=== PATIENT | male | born 1950 | race Caucasian/White ===

== ENCOUNTER 2017-11-21 17:09 | Emergency (ER) | payer OTHER, BC ==
[~2017-11-21] VITALS: Ht 177.8 cm; Wt 120.5 kg
[2017-11-21 17:29] VITALS: TEMP 36.7
[2017-11-21] MEDS ORDERED: ALUMINUM/MAGNESIUM SUSP 30 ML UDC PO STA (17:40)
[2017-11-21] MEDS ORDERED: ASPIRIN 81 MG CHEW PO STA (17:40)
[2017-11-21 17:44] VITALS: O2SAT 96
--- NOTE | 2017-11-21 17:54 | EMERGENCY ROOM VISIT NOTE ---
History Report prepared by [place]: Jenna Rodriguez Under the Supervision of: Monika BurdenO. First contact with patient: 17:33 Chief Complaint: ARM PAIN Stated Complaint: ARM PAIN AND SOME CHEST PAIN History of Present Illness The patient is a 67 year old male who presents to the Emergency Room with complaints of persistent right chest pain that began several days ago. 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 The patient states that he has been experiencing increasing right chest pain, along with some slight right arm pain, right wrist pain, and some swelling in his legs. He denies anything worsening his chest pain. The patient notes that he has been experiencing some shortness of breath recently. He states that last night, his wrist pain worsened and his fingers went numb for some time. The patient reports a history of a heart attack and a heart catheterization, but denies any history of blood clots. Source of History: patient Onset: several days ago Position: chest (right) Quality: other (right chest pain) Timing: other (persistent) Associated Symptoms: + SOB Note: Associated symptoms include: slight right arm pain, right wrist pain, and some swelling in his legs. Review of Systems See HPI for pertinent positives & negatives. A total of 10 systems reviewed and were otherwise negative. Past Medical & Surgical Medical Problems: (1) Arthritis (2) GERD (gastroesophageal reflux disease) (3) HTN (hypertension) Family History Patient reports no known family medical history. Patient does not report any pertinent family history. Social History Smoking Status: Never Smoker Smokeless Tobacco Use: No Alcohol Use: none Drug Use: none Marital Status: Housing Status: lives with family Occupation Status: employed Current/Historical Medications Scheduled Allopurinol (Zyloprim), 300 MG PO DAILY Aspirin (Aspirin Ec), 81 MG PO QPM Chlorthalidone (Hygroton), 12.5 MG PO QAM Cholecalciferol (Vitamin D3), 1 CAP PO QPM Ezetimibe (Zetia), 10 MG PO DAILY Fenofibrate Micronized (Tricor), 134 MG PO DAILY Lisinopril (Lisinopril), 5 MG PO DAILY Metoprolol Succinate (Metoprolol Succinate ER), 25 MG PO QAM Multiple Vitamins W/ Minerals (One Daily For Men 50+ Adv), 1 TAB PO DAILY Potassium (Potassium), 99 MG PO QPM Allergies Coded Allergies: Penicillins (Unverified Allergy, Severe, HIVES, 11/21/17) Physical Exam Vital Signs Date Time Temp Pulse Resp B/P (MAP) Pulse Ox O2 Delivery O2 Flow Rate FiO2 11/21/17 20:21 Room Air 11/21/17 19:58 66 20 138/77 99 Room Air 11/21/17 18:32 67 18 148/90 98 Room Air 11/21/17 17:44 96 Room Air 11/21/17 17:44 96 Room Air 11/21/17 17:42 75 11/21/17 17:29 36.7 88 20 184/88 96 Room Air Physical Exam GENERAL: Patient is awake, alert, and in no acute distress. Patient is resting comfortably and showing no signs of anxiety EYES: The conjunctivae are clear. The pupils are round and reactive. EARS, NOSE, MOUTH AND THROAT: The nose is without any evidence of any deformity. Mucous membranes are moist tongue is midline NECK: The neck is nontender and supple. RESPIRATORY: Normal respiratory effort is noted there is no evidence of wheezing rhonchi or rales CARDIOVASCULAR: Regular rate and rhythm noted there no murmurs rubs or gallops normal S1 normal S2 GASTROINTESTINAL: The abdomen is soft. Bowel sounds are present in all quadrants. Abdomen is nontender MUSCULOSKELETAL/EXTREMITIES: No calve tenderness bilaterally. There is no evidence of gross deformity full range of motion is noted in the hips and shoulders SKIN: Trace pedal edema bilaterally. There is no obvious evidence of any rash. There are no petechiae, pallor or cyanosis noted. NEUROLOGIC: Patient is awake alert and oriented x3 strength is symmetric patellar reflexes are 2+ bilaterally Medical Decision & Procedures ER Provider Diagnostic Interpretation: Radiology results as stated below per my review and radiologist interpretation: CHEST ONE VIEW PORTABLE CLINICAL HISTORY: EVALUATE RESPIRATORY DISTRESS.DYSPNEA dyspnea COMPARISON STUDY: No previous studies for comparison. FINDINGS: Mild cardiomegaly. Lungs are clear. Diaphragms are smooth. IMPRESSION: Mild cardiomegaly. Otherwise negative study. The above report was generated using voice recognition software. It may contain grammatical, syntax or spelling errors. Electronically signed by: Jacob Thompson M.D. 11/21/2017 6:09 PM Dictated Date/Time: 11/21/2017 6:09 PM Laboratory Results 11/21/17 17:51 Red Blood Count 4.14, Mean Corpuscular Volume 91.1, Mean Corpuscular Hemoglobin 30.0, Mean Corpuscular Hemoglobin Concent 32.9, Mean Platelet Volume 10.3, Neutrophils (%) (Auto) 66.2, Lymphocytes (%) (Auto) 21.2, Monocytes (%) (Auto) 7.7, Eosinophils (%) (Auto) 4.4, Basophils (%) (Auto) 0.4, Neutrophils # (Auto) 4.81, Lymphocytes # (Auto) 1.54, Monocytes # (Auto) 0.56, Eosinophils # (Auto) 0.32, Basophils # (Auto) 0.03 11/21/17 17:51 Test 11/21/17 17:51 11/21/17 17:57 White Blood Count 7.27 K/uL (4.8-10.8) Red Blood Count 4.14 M/uL (4.7-6.1) Hemoglobin 12.4 g/dL (14.0-18.0) Hematocrit 37.7 % (42-52) Mean Corpuscular Volume 91.1 fL (80-100) Mean Corpuscular Hemoglobin 30.0 pg (25-34) Mean Corpuscular Hemoglobin Concent 32.9 g/dl (32-36) Platelet Count 222 K/uL (130-400) Mean Platelet Volume 10.3 fL (7.4-10.4) Neutrophils (%) (Auto) 66.2 % Lymphocytes (%) (Auto) 21.2 % Monocytes (%) (Auto) 7.7 % Eosinophils (%) (Auto) 4.4 % Basophils (%) (Auto) 0.4 % Neutrophils # (Auto) 4.81 K/uL (1.4-6.5) Lymphocytes # (Auto) 1.54 K/uL (1.2-3.4) Monocytes # (Auto) 0.56 K/uL (0.11-0.59) Eosinophils # (Auto) 0.32 K/uL (0-0.5) Basophils # (Auto) 0.03 K/uL (0-0.2) RDW Standard Deviation 49.1 fL (36.4-46.3) RDW Coefficient of Variation 14.8 % (11.5-14.5) Immature Granulocyte % (Auto) 0.1 % Immature Granulocyte # (Auto) 0.01 K/uL (0.00-0.02) Prothrombin Time 10.3 SECONDS (9.0-12.0) Prothromb Time International Ratio 1.0 (0.9-1.1) Activated Partial Thromboplast Time 26.3 SECONDS (21.0-31.0) Partial Thromboplastin Ratio 1.0 Anion Gap 4.0 mmol/L (3-11) Est Creatinine Clear Calc Drug Dose 52.0 ml/min Estimated GFR () 43.9 Estimated GFR (Non- 37.9 BUN/Creatinine Ratio 19.3 (10-20) Calcium Level 9.9 mg/dl (8.5-10.1) Total Bilirubin 0.4 mg/dl (0.2-1) Aspartate Amino Transf (AST/SGOT) 20 U/L (15-37) Alanine Aminotransferase (ALT/SGPT) 29 U/L (12-78) Alkaline Phosphatase 62 U/L (45-117) Total Creatine Kinase 117 U/L (39-308) Creatine Kinase MB 2.1 ng/ml (0.5-3.6) Creatine Kinase MB Ratio 1.8 (0-3.0) Troponin I < 0.015 ng/ml (0-0.045) Total Protein 7.4 gm/dl (6.4-8.2) Albumin 3.7 gm/dl (3.4-5.0) Globulin 3.7 gm/dl (2.5-4.0) Albumin/Globulin Ratio 1.0 (0.9-2) Bedside D-Dimer 219 ng/mlFEU (0-450) Laboratory results per my review. Medications Administered Medications (Trade) Dose Ordered Sig/Nora Route Start Time Stop Time Status Last Admin Dose Admin Aspirin (Aspirin Chew) 324 mg NOW STAT PO 11/21/17 17:40 11/21/17 17:41 DC 11/21/17 17:54 324 MG Al Hydroxide/Mg Hydroxide (Maalox Susp) 30 ml NOW STAT PO 11/21/17 17:40 11/21/17 17:41 DC 11/21/17 17:54 30 ML ECG Per My Interpretation Indication: chest pain Rate (beats per minute): 90 Rhythm: normal sinus Findings: no ectopy, other (Inferior Q waves noted) Comparison ECG Date: no prior available ED Course 1735: The patient was evaluated in room C1. A complete history and physical examination were performed. 1739: Ordered Maalox Susp 30ml PO and Aspirin 324mg PO. 1833: I discussed the patient's case with MARION Zapata hospitalist. The patient will be evaluated for further management. 1835: I reevaluated the patient, who was resting comfortably. Updated him on test findings and treatment plan. He verbalized complete understanding and agreement. Medical Decision Prior records/ancillary studies reviewed. Triage Nursing notes reviewed. The patient's history was concerning for chest pain. Differential diagnosis: Etiologies such as cardiac ischemia, aortic dissection, pulmonary embolism, pneumonia, pneumothorax, musculoskeletal, infections, pericarditis, myocarditis , esophageal rupture, gastrointestinal, as well as others were entertained. The patient is a 67-year-old male who presented to the emergency department for an evaluation of upper extremity discomfort but also chest discomfort. The patient is from outside of our area. 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 The patient was helping coworkers hanging drywall and frame off a room. The patient started noticing discomfort in his right arm but then also in his chest. The patient has a history of coronary artery disease in the past. The patient's EKG did not show any acute ischemic changes and his cardiac biomarkers were negative. I discussed patient's laboratory and radiographic studies with him. I also discussed the limitations of the emergency department workup for chest pain with him. Because of his symptoms and his past medical history I notified the [facility] hospitalist group about the patient for further management and disposition. Medication Reconcilliation Current Medication List: was personally reviewed by me Blood Pressure Screening Patient's blood pressure: Elevated blood pressure Blood pressure disposition: Referred to PCP (monitored) Consults Time Called: 1833 Consulting Physician: MARION Zapata hospitalist Returned Call: 1833 I discussed the patient's case with MARION Zapata hospitalist. The patient will be evaluated for further management. Impression Primary Impression: Chest pain Scribe Attestation The scribe's documentation has been prepared under my direction and personally reviewed by me in its entirety. I confirm that the note above accurately reflects all work, treatment, procedures, and medical decision making performed by me. Departure Information Dispostion Being Evaluated By Hospitalist Referrals No Doctor, Assigned (PCP) Forms HOME CARE DOCUMENTATION FORM, IMPORTANT VISIT INFORMATION Patient Instructions My [facility] Problem Qualifiers Primary Impression: Chest pain Chest pain type: unspecified Qualified Codes: R07.9 - Chest pain, unspecified
[2017-11-21 18:05] LABS: BASO % 0.4 %; BASO ABS # 0.03 K/uL (0-0.2); EOS % 4.4 %; EOS ABS # 0.32 K/uL (0-0.5); HEMATOCRIT 37.7 % (42-52); HEMOGLOBIN 12.4 g/dL (14.0-18.0); IG# 0.01 K/uL (0.00-0.02); LYMPH % 21.2 %; LYMPH ABS # 1.54 K/uL (1.2-3.4); MEAN CELL VOLUME 91.1 fL (80-100); MEAN CORPUSCULAR HGB CONC 32.9 g/dl (32-36); MEAN PLATELET VOLUME 10.3 fL (7.4-10.4); MONO % 7.7 %; MONO ABS # 0.56 K/uL (0.11-0.59); NEUT % 66.2 %; NEUT ABS # 4.81 K/uL (1.4-6.5); PLATELET COUNT 222 K/uL (130-400); RED CELL DISTRIBUTION WIDTH CV 14.8 % (11.5-14.5); RED CELL DISTRIBUTION WIDTH SD 49.1 fL (36.4-46.3); WHITE BLOOD COUNT 7.27 K/uL (4.8-10.8)
--- NOTE | 2017-11-21 18:10 | DIAGNOSTIC IMAGING REPORT ---
CHEST ONE VIEW PORTABLE CLINICAL HISTORY: EVALUATE RESPIRATORY DISTRESS.DYSPNEA dyspnea COMPARISON STUDY: No previous studies for comparison. FINDINGS: Mild cardiomegaly. Lungs are clear. Diaphragms are smooth. IMPRESSION: Mild cardiomegaly. Otherwise negative study. The above report was generated using voice recognition software. It may contain grammatical, syntax or spelling errors. Electronically signed by: Jacob Thompson M.D. 11/21/2017 6:09 PM Dictated Date/Time: 11/21/2017 6:09 PM
[2017-11-21 18:13] LABS: PTT PATIENT 26.3 SECONDS (21.0-31.0)
[2017-11-21 18:17] LABS: ALBUMIN 3.7 gm/dl (3.4-5.0); ALT/SGPT 29 U/L (12-78); AST/SGOT 20 U/L (15-37); BLOOD UREA NITROGEN 35 mg/dl (7-18); CALCIUM 9.9 mg/dl (8.5-10.1); CARBON DIOXIDE 25 mmol/L (21-32); CREATININE 1.83 mg/dl (0.60-1.40); GLUCOSE 99 mg/dl (70-99); POTASSIUM 3.8 mmol/L (3.5-5.1); SODIUM 140 mmol/L (136-145)
[2017-11-21 18:22] LABS: ALKALINE PHOSPHATASE 62 U/L (45-117); CKMB 2.1 ng/ml (0.5-3.6); TOTAL PROTEIN 7.4 gm/dl (6.4-8.2)
[2017-11-21] MEDS ORDERED: HYG/25 PO (18:26)
[2017-11-21] MEDS ORDERED: ALLO300T2 PO (18:26)
[2017-11-21] MEDS ORDERED: EZET10TA63 PO (18:26)
[2017-11-21] MEDS ORDERED: MULT1TAB18 PO (18:26)
[2017-11-21] MEDS ORDERED: POTA99TA PO (18:26)
[2017-11-21] MEDS ORDERED: ASPI81TA28 PO (18:26)
[2017-11-21] MEDS ORDERED: LSN5 PO (18:26)
[2017-11-21] MEDS ORDERED: TPRSR/25 PO (18:26)
[2017-11-21] MEDS ORDERED: CHOLCAP5 PO (18:26)
[2017-11-21] MEDS ORDERED: FENO134C PO (18:26)
[2017-11-21] MEDS ORDERED: SODIUM CHLORIDE 0.9% 1000ML 1,000 ML IV SCH (19:45)
[2017-11-21 20:21] VITALS: Ht 177.8 cm; Wt 120.5 kg
[2017-11-21] MEDS ORDERED: PNEUMOCOCCAL ADMINISTRATION CHARGE ONE (20:45)
[2017-11-21] MEDS ORDERED: PNEUMOCOCCAL POLYSACCHARIDES 25 MCG/0.5 ML VIAL/SYR IM. ONE (20:45)
--- NOTE | 2017-11-21 21:05 | Medical Consult ---
Consultation Date of Consultation: Nov 21, 2017. Attending Physician: History of Present Illness 67 y/o M Hx HTN, HPL, osteoarthritis, CKD III, gout - states he may have a history of a silent NC. 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 He developed pain in his R wrist and forearm the previous talha which has been persistent. He also reports intermittent R upper CP throughout the day. He denies SOB, N/V, diaphoresis. The pain does not occur with exertion necessarily. 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 His hand became numb occasionally during the night. He reports some exertional dyspnea when working and ascending several flights of stairs, however, this is not new and he attributes this to his physical job and advancing age. Initial EKG and troponin do not support acute ischemia. Aside form some persistent pain in his wrist, he is asymptomatic at the time of evaluation. Past Medical/Surgical History 1) HTN 2) HPL 3) Gout 4) Osteoarthritis 5) States his MD told him he may have had an NC in the past - he does not recall having symptoms of Family History Patient reports no known family medical history. 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 from [place] Smoking Status: Never Smoker Smokeless Tobacco Use: No Drug Use: none Marital Status: Housing Status: lives with family Occupation Status: employed Allergies Coded Allergies: Penicillins (Unverified Allergy, Severe, HIVES, 11/21/17) Current Inpatient Medications Current Inpatient Medications Medications (Trade) Dose Ordered Sig/Nora Route Start Time Stop Time Status Last Admin Dose Admin Allopurinol (Zyloprim Tab) 300 mg DAILY PO 11/22/17 09:00 12/22/17 08:59 UNV Aspirin (Ecotrin Tab) 81 mg QPM PO 11/21/17 21:00 12/21/17 20:59 UNV EZETIMIBE (Zetia Tab) 10 mg DAILY PO 11/22/17 09:00 12/22/17 08:59 UNV Lisinopril (Zestril Tab) 5 mg DAILY PO 11/22/17 09:00 12/22/17 08:59 UNV Metoprolol Succinate (Toprol Xl Tab) 25 mg QAM PO 11/22/17 09:00 12/22/17 08:59 UNV Non-Formulary Medication (Fenofibrate Micronized (Tricor)) 134 mg DAILY PO 11/22/17 09:00 12/22/17 08:59 UNV Sodium Chloride 1,000 ml @ 200 mls/hr Q5H IV 11/21/17 19:45 12/21/17 19:44 UNV Review of Systems Constitutional: No fever, No chills, No sweats Eyes: No worsening of vision ENT: No nasal symptoms Respiratory: No cough Cardiovascular: + chest pain (R upper as above) Abdomen: No pain, No nausea, No vomiting Musculoskeletal: + joint pain (Wrist/forearm) Genitourinary - Male: No hematuria, No dysuria Neurologic: + numbness/tingling (In hand overnight), No memory loss, No paralysis, No weakness Psychiatric: No depression symptoms Endocrine: No fatigue Hematologic / Lymphatic: No abnormal bleeding/bruising Integumentary: No rash Allergic / Immunologic: No environmental allergies Physical Exam Date Time Temp Pulse Resp B/P (MAP) Pulse Ox O2 Delivery O2 Flow Rate FiO2 11/21/17 19:58 66 20 138/77 99 Room Air 11/21/17 18:32 67 18 148/90 98 Room Air 11/21/17 17:44 96 Room Air 11/21/17 17:44 96 Room Air 11/21/17 17:42 75 11/21/17 17:29 36.7 88 20 184/88 96 Room Air General Appearance: WD/WN, no apparent distress Head: normocephalic Eyes: normal inspection ENT: normal ENT inspection, pharynx normal Neck: supple, no JVD Respiratory/Chest: chest non-tender, lungs clear, normal breath sounds Cardiovascular: regular rate, rhythm, no edema Abdomen/GI: normal bowel sounds, non tender, soft Back: normal inspection, no CVA tenderness Extremities/Musculoskelatal: normal inspection, no calf tenderness, normal capillary refill 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, no motor/sensory deficits, alert, oriented x 3 Skin: normal color Laboratory Results Last 24 Hours Test 11/21/17 17:51 11/21/17 17:57 White Blood Count 7.27 K/uL Red Blood Count 4.14 M/uL Hemoglobin 12.4 g/dL Hematocrit 37.7 % Mean Corpuscular Volume 91.1 fL Mean Corpuscular Hemoglobin 30.0 pg Mean Corpuscular Hemoglobin Concent 32.9 g/dl Platelet Count 222 K/uL Mean Platelet Volume 10.3 fL Neutrophils (%) (Auto) 66.2 % Lymphocytes (%) (Auto) 21.2 % Monocytes (%) (Auto) 7.7 % Eosinophils (%) (Auto) 4.4 % Basophils (%) (Auto) 0.4 % Neutrophils # (Auto) 4.81 K/uL Lymphocytes # (Auto) 1.54 K/uL Monocytes # (Auto) 0.56 K/uL Eosinophils # (Auto) 0.32 K/uL Basophils # (Auto) 0.03 K/uL RDW Standard Deviation 49.1 fL RDW Coefficient of Variation 14.8 % Immature Granulocyte % (Auto) 0.1 % Immature Granulocyte # (Auto) 0.01 K/uL Prothrombin Time 10.3 SECONDS Prothromb Time International Ratio 1.0 Activated Partial Thromboplast Time 26.3 SECONDS Partial Thromboplastin Ratio 1.0 Sodium Level 140 mmol/L Potassium Level 3.8 mmol/L Chloride Level 111 mmol/L Carbon Dioxide Level 25 mmol/L Anion Gap 4.0 mmol/L Blood Urea Nitrogen 35 mg/dl Creatinine 1.83 mg/dl Est Creatinine Clear Calc Drug Dose 52.0 ml/min Estimated GFR () 43.9 Estimated GFR (Non- 37.9 BUN/Creatinine Ratio 19.3 Random Glucose 99 mg/dl Calcium Level 9.9 mg/dl Total Bilirubin 0.4 mg/dl Aspartate Amino Transf (AST/SGOT) 20 U/L Alanine Aminotransferase (ALT/SGPT) 29 U/L Alkaline Phosphatase 62 U/L Total Creatine Kinase 117 U/L Creatine Kinase MB 2.1 ng/ml Creatine Kinase MB Ratio 1.8 Troponin I < 0.015 ng/ml Total Protein 7.4 gm/dl Albumin 3.7 gm/dl Globulin 3.7 gm/dl Albumin/Globulin Ratio 1.0 Bedside D-Dimer 219 ng/mlFEU Assessment & Plan 67 y/o M Hx HTN, HPL, osteoarthritis, CKD III, gout - states he may have a history of a silent NC. 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 He developed pain in his R wrist and forearm the previous talha which has been persistent. He also reports intermittent R upper CP throughout the day. He denies SOB, N/V, diaphoresis. The pain does not occur with exertion necessarily. 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 His hand became numb occasionally during the night. Initial EKG and troponin do not support acute ischemia. Aside form some persistent pain in his wrist, he is asymptomatic at the time of evaluation. 1) CP - The atypical nature and location of his CP, known arthritis in his wrist and lack of abnormalities on labs and EKG indicate that his pain is not likely cardiac in nature. We will monitor for a period in the ER and repeat a trop at a 3 hour interval. It would be reasonable to DC the pt to pursue outpt follow-up if repeat labs are WNL. Owing to multiple risk factors, we have encouraged the pt to follow-up on return to [place] at the earliest possible time. He is instructed to return to the hospital with exertional CP, SOB, migration of the pain to the L or worsening/persistence of the pain. 2) CKD - pt confirms that renal function is at baseline as he recalls a baseline GFR of approximately 40. 3) HTN, HPL - no changes have been effected to his med regimen - presumably he is statin-intolerant as this does not feature in his list 4) Regarding wrist pain - he should likely follow with an orthopedist as the description including HS numbness is consistent with carpal tunnel syndrome. A gout flare is less likely. 5) Gout - cont Allopurinol Total time for this consult including review of labs, meds, imaging, records - discussion with pt and ER attending - 35 min
[2017-11-21 21:17] VITALS: BP 117/74; PULSE 70; O2SAT 98
[2017-11-22] MEDS ORDERED: LISINOPRIL 5 MG TAB PO SCH (09:00)
[2017-11-22] MEDS ORDERED: EZETIMIBE 10MG TAB PO SCH (09:00)
[2017-11-22] MEDS ORDERED: METOPROLOL SUCC 25MG EXT REL TAB PO SCH (09:00)
[2017-11-22] MEDS ORDERED: ALLOPURINOL 300 MG TAB PO SCH (09:00)
[2017-11-22] MEDS ORDERED: FENOFIBRATE 145 MG TAB PO SCH (09:00)
[2017-11-22] MEDS ORDERED: ASPIRIN 81 MG ECTAB PO SCH (21:00)
== END 2017-11-21 21:45 | disposition home or self-care (01) ==
LOC: C.EDB 17:12 → C.EDC 21:45
DX: R07.9 Chest pain, unspecified (principal); R03.0 Elevated blood-pressure reading, without diagnosis of hypertension; R60.0 Localized edema; M79.621 Pain in right upper arm; M25.531 Pain in right wrist; R20.0 Anesthesia of skin; I10 Essential (primary) hypertension; K21.9 Gastro-esophageal reflux disease without esophagitis; M19.90 Unspecified osteoarthritis, unspecified site; Z79.82 Long term (current) use of aspirin; Z79.899 Other long term (current) drug therapy; Z88.0 Allergy status to penicillin